=== PATIENT | male | born 1985 | race Two or more races ===

== ENCOUNTER 2019-11-03 20:10 | Emergency (ER) | payer MEDICAID ==
[~2019-11-03] VITALS: Ht 172.7 cm; Wt 81.6 kg
[2019-11-03] MEDS ORDERED: LOSA50TA39 PO (20:21)
[2019-11-03] MEDS ORDERED: AMLO5TAB9 PO (20:21)
--- NOTE | 2019-11-03 20:50 | NUR ---
Dr. Oropeza at bedside for MSE.
[2019-11-03] MEDS ORDERED: IV NORMAL SALINE 1000 ML BAG IV ONE ×2 (21:00→22:00)
[2019-11-03 21:06] LABS: BASOPHILS % (AUTO) 0.2 % (0.0-2.0); EOSINOPHILS # (AUTO) 0.1 K/uL (0.0-0.7); EOSINOPHILS % (AUTO) 1.8 % (0.0-7.0); HEMATOCRIT 37.6 % (36.7-47.1); HEMOGLOBIN 12.8 g/dL (12.5-16.3); LYMPHOCYTES # (AUTO) 2.1 K/uL (20.0-40.0); LYMPHOCYTES % (AUTO) 32.4 % (20.5-51.5); MEAN CORPUSCULAR HEMOGLOBIN 29.6 uug (23.8-33.4); MEAN CORPUSCULAR HGB CONC 34 g/dL (32.5-36.3); MONOCYTES # (AUTO) 0.6 K/uL (2.0-10.0); MONOCYTES % (AUTO) 9.5 % (0.0-11.0); NEUTROPHILS # (AUTO) 3.7 K/uL (1.8-8.9); NEUTROPHILS % (AUTO) 56.1 % (38.5-71.5); PLATELET COUNT (AUTO) 349 K/uL (152-348); RED BLOOD CELL COUNT(AUTO) 4.32 MIL/uL (4.06-5.63); WHITE BLOOD COUNT (AUTO) 6.6 K/uL (3.6-10.2)
[2019-11-03 21:19] LABS: CREATININE 2.1 mg/dL (0.6-1.3); POTASSIUM 4.1 mmol/L (3.5-5.1)
[2019-11-03 21:25] LABS: BILIRUBIN,DIRECT 0.1 mg/dL (0.0-0.2); BILIRUBIN,TOTAL 0.3 mg/dL (0.2-1.0); TOTAL PROTEIN, SERUM 7.7 g/dL (6.4-8.2)
--- NOTE | 2019-11-03 23:07 | NUR ---
Patient discharged to home in stable conditon. Written and verbal after care instructions given. Patient verbalizes understanding of instructions. Pt ambulated out of ER with steady gait, no acute signs of distress, VSS, all belongings taken, IV site discontinued.
[2019-11-03 23:10] VITALS: BP 114/76
== END 2019-11-03 23:10 | disposition home or self-care (01) ==
LOC: ER 20:13
DX: R00.2 Palpitations (principal); N28.9 Disorder of kidney and ureter, unspecified; I10 Essential (primary) hypertension; Z79.899 Other long term (current) drug therapy
CPT/HCPCS: 36415; 70030-TC; 84443; 85025; 93005; A4663; J7030